=== PATIENT | female | born 1980 | race Caucasian/White ===

== ENCOUNTER 2018-03-03 12:14 | Day surgery (SDC) | payer OTHER, SELFPAY ==
[2018-02-26 13:25] VITALS: BMI 26.7
[2018-03-03] VITALS (7 sets, daily range): BP systolic 104–111; BP diastolic 64–73; PULSE 51–82; RESP 15–17; TEMP 36.2–36.9; O2SAT 95–100; BMI 26.7
--- NOTE | 2018-03-03 | PATH_ITS ---
[facility] Accession Number: [id number] . 01 Material submitted: . ENDOMETRIAL CURETTINGS . 02 Diagnosis: Endometrium, Curettings: Fragments suggestive of benign endometrial polyp. Proliferative endometrium. No evidence of neoplasia or hyperplasia. [facility]/03/05/2018 . 02 Electronically signed: . Christie Sullivan MD, Pathologist NPI- [id number] . 01 Gross description: . Received one formalin-filled container labeled with the patient's name and labeled endometrial curettings. The specimen consists of approximately a 1.5 cc aggregate of tissue, mucoid material and blood, which is filtered, wrapped and entirely submitted in one cassette. ([facility] [place]:[id number]) . /[facility] . 02 Pathologist provided ICD-10: N84.0 . 02 CPT . 010247 Performed at: 01 [facility] [address] [facility] [place] [facility] [place], [place], [place] [id number] MD Terrence Kline MD Phone: [phone] Performed at: 02 [facility] [address] [place], [place] [id number] MD Kong Guardado MD Phone: [phone]
[2018-03-03] MEDS: LACTATED RINGERS 1,000 ML 100 ML IV (13:29)
[2018-03-03] MEDS: CEFAZOLIN 2 GM/100 ML FROZ.PIGGY IV (14:05)
--- NOTE | 2018-03-03 14:26 | SUR.OPER ---
Lithotomy on padded OR bed, head on pillow, arms secured on padded arm boards at <90 degrees abduction. Legs secured in padded yellow fins stirrups.
[2018-03-03] MEDS: BUPIVACAINE 0.5% W/ EPI (PF) VIAL 30 ML INJ (14:32)
--- NOTE | 2018-03-03 15:11 | P.OP_ITS ---
Operative Date/Time/Diagnoses Date of procedure: 03/03/18 Time of procedure: 14:15 Pre-op diagnosis: Abnormal uterine bleeding Post-op diagnosis: same Procedure: Procedures Operation Date: 03/03/18 13:45 Actual Procedures Side Surgeon p Hysteroscopy D&C with Endometrial Ablation Letty Locke MD Indications: The patient is a 37-year-old 3 para 3 female here for hysteroscopy, dilation and curettage, and endometrial ablation for management of bothersome abnormal uterine bleeding that has resulted in mild anemia. She utilizes a menstrual cup and reports a volume of approximately 200 mL with every menstrual cycle. Her past history is notable for section x3, the last with a bilateral tubal ligation. With her menses she passes clots and has significant cramping prior to the onset of bleeding. She has been diagnosed with mild anemia resulting from the bleeding. She has been trying a hormonal support supplement, which seemed to help the clotting, but overall cycle continued to be heavy. Endometrial biopsy and pelvic ultrasound were obtained and both were normal. The management options were discussed and the patient desired endometrial ablation. The risks, benefits, limitations, alternatives, and expectations of surgery were discussed, and the consent was reviewed and signed prior to the surgery. Surgeon: Letty Locke Anesthesia Type: General and Local (0.5* arcaine, 12 ml) Operative Notes Findings: Exam under anesthesia: Normal external genitalia; bimanual exam noted an anteverted uterus approximately 9 weeks in size with no palpable masses ; no adnexal masses palpable Operative findings: Approximately 0.5 cm polypoid lesion was noted at the anterior right cornu will region of the endometrium. This was removed with dilation curettage. The tubal ostia were seen bilaterally. There were no other endometrial masses noted. The endometrial cavity length was measured to be 6 cm. The endometrial cavity width was measured to be 4.1 cm. The endometrial ablation was performed with the NovaSure device with to a power of 135 w for 79 sec. Hysteroscopy following the ablation noted good cauterization throughout the endometrial cavity. Closure Type: not applicable Specimen(s): endometrial curettings Applied: device(s) (Novasure endometrial ablation device) Estimated blood loss (mL): 4 Blood products transfused: none Procedure in detail: The patient was taken to the operating room where general anesthesia with LMA was administered without difficulty. She was then placed in the high dorsal lithotomy position with her lower extremities in Yellofin stirrups. Exam under anesthesia was then performed with the findings as noted above. Perineum and vagina were then prepped and draped in a sterile fashion, and in-and-out catheterization was performed. Procedure Time-Out was performed. A sterile bivalve speculum was then placed. The anterior lip of the cervix was then grasped with a single-toothed tenaculum. Local anesthetic using 0.25% Marcaine with epinephrine was then injected at the 12:00, 2:00, 4:00, 7:00, and 10:00 positions for a paracervical block. The cervix was then serially dilated until 7 mm 30-degree hysteroscope could be gently advanced to the uterine fundus. Using sterile saline for distention, the endometrial cavity was visualized with the findings as noted above. Sharp curettage was then performed on all 4 diaz of the uterus. This tissue was sent for pathology. The NovaSure endometrial ablation device was then placed onto the sterile field. The endometrial cavity length was measured to be 6. The NovaSure device was then inserted into the endometrium, and the array deployed. The endometrial cavity width was determined to be 4.1 cm. Carbon dioxide gas insufflation test was then performed without complication. Ablation was then performed for 79 sec to a power of 135 W. The array was then retracted, and the device removed from the endometrial cavity. The diagnostic hysteroscope was then replaced into the endometrial cavity, and visualization noted excellent cauterization throughout. The hysteroscope was then removed. The tenaculum was then removed, and the tenaculum sites hemostatic without need for silver nitrate. At this point, the procedure was deemed complete. Sponge, lap, and needle count were correct x3. There were no complications. The patient was then taken to the recovery room in stable condition. Complications: none Post-operative Condition: stable Disposition: same day surgery Plan for aftercare: D/c to home. See discharge instructions.
[2018-03-03] MEDS: fentaNYL 100 MCG/2 ML INJ 50 MCG IV ×2 (15:13→15:21)
--- NOTE | 2018-03-03 15:36 | SUR.PREOP ---
glucose not needed per dr. rivera prior to surgery at 1300
--- NOTE | 2018-03-03 15:37 | SUR.PREOP ---
pt to opd from pacu, resting, taking fluids, pain at 3/10 , spouse at side
[2018-03-03] MEDS: HYDROCODONE/ACET 5/325 TABLET 1 TAB PO (16:31)
--- NOTE | 2018-03-03 16:58 | SUR.PHASEII ---
1630 pt requesting to go home , vss, pain at 3/10, mostly cramping, elizabeth pad scant drainage noted , no n/v
--- NOTE | 2018-03-03 16:59 | SUR.PHASEII ---
1645 pt dressed and steady on feet, ready to go
== END 2018-03-03 16:50 ==
LOC: OR 12:19
PROVIDERS: Visit Provider Obstetrics & Gynecology
PROC: 0U5B8ZZ Destruction of Endometrium, Via Natural or Artificial Opening Endoscopic (ICD-10-PCS; CPT 58563; principal; 2018-03-03 13:45)
DX: N84.0 Polyp of corpus uteri (principal)
CPT/HCPCS: 58563; J0690; J1100; J2590; J2704; J3010